=== PATIENT | female | born 1960 | race African-American/Black ===

== ENCOUNTER → 2017-07-22 | Outpatient (CLI) | payer BC ==
--- NOTE | 2017-07-22 16:06 | RAD ---
DATE: 07/22/2017. EXAM: DIGITAL SCREEN BILAT W/CAD. HISTORY: Routine mammographic screening. COMPARISON: 07/22/2016. This study was interpreted with the benefit of Computerized Aided Detection (CAD). FINDINGS: The breast parenchyma is dense, which could reduce sensitivity of mammography. Breast parenchyma level density D.. There are no suspicious masses, microcalcifications or architectural distortion. The parenchymal pattern is stable. BI-RADS CATEGORY: 1 NEGATIVE. RECOMMENDED FOLLOW-UP: 12M 12 MONTH FOLLOW-UP. PQRS compliance statement: Patient information was entered into a reminder system with a target due date 07/22/2018 for the next mammogram. Mammography is a sensitive method for finding small breast cancers, but it does not detect them all and is not a substitute for careful clinical examination. A negative mammogram does not negate a clinically suspicious finding and should not result in delay in biopsying a clinically suspicious abnormality. "Our facility is accredited by the [employer] Mammography [employer]."
== END | disposition home or self-care (01) ==
LOC: MAMMO 11:10
PROVIDERS: ATTEND Obstetrics & Gynecology
DX: Z12.31 Encounter for screening mammogram for malignant neoplasm of breast (principal)
CPT/HCPCS: G0202; 77067

== ENCOUNTER → 2018-07-28 | Outpatient (CLI) | payer BC ==
--- NOTE | 2018-07-31 09:40 | RAD ---
DATE: 07/28/2018 EXAM: MAMMO MORIS SCREENING BILATERAL HISTORY: Routine screening COMPARISON: 07/22/2017 This study was interpreted with the benefit of Computerized Aided Detection (CAD). Breast Density: HETERO The breast parenchyma is heterogenously dense, which could reduce sensitivity of mammography. Breast parenchyma level C. FINDINGS: 2-D and 3-D tomosynthesis imaging was performed in CC and MLO projections. The patient positioning is suboptimal. No new or enlarging breast densities are seen. No suspicious microcalcifications are evident. IMPRESSION: There is no mammographic evidence of malignancy in either breast. BI-RADS CATEGORY: 1 NEGATIVE RECOMMENDED FOLLOW-UP: 12M 12 MONTH FOLLOW-UP PQRS compliance statement: Patient information was entered into a reminder system with a target due date for the next mammogram. Mammography is a sensitive method for finding small breast cancers, but it does not detect them all and is not a substitute for careful clinical examination. A negative mammogram does not negate a clinically suspicious finding and should not result in delay in biopsying a clinically suspicious abnormality. "Our facility is accredited by the [employer]ammography [employer]."
== END | disposition home or self-care (01) ==
LOC: MAMMO 14:10
PROVIDERS: ATTEND Obstetrics & Gynecology
DX: Z12.31 Encounter for screening mammogram for malignant neoplasm of breast (principal)
CPT/HCPCS: 77063; 77067

== ENCOUNTER → 2019-08-03 | Outpatient (CLI) | payer BC ==
--- NOTE | 2019-08-03 16:35 | KCIC ---
Bilateral digital screening mammograms with 3-D tomosynthesis: Reason for examination: Routine screening. Comparison is made to previous studies dated 07/28/2018 and 07/22/2017. Bilateral mammograms in CC and oblique projections were obtained with 2-D imaging and 3-D tomosynthesis imaging on a Siemens Inspiration unit and reviewed on the workstation. Interpretation was made with the benefit of CAD. The skin and nipples show no abnormalities. No abnormal axillary lymph nodes are seen. The breast parenchyma is heterogeneously dense. (Breast density: Category C.) There appears to be new clustered calcifications present in the 5:00 B position of the right breast. Recommend further evaluation with coned magnification views. There is a new nodular density seen posterior centrally in the 6:00 B position of the right breast. Recommend further evaluation with ultrasound. There is also suggestion of some nodularity in the left breast on tomographic oblique view image #27 of 47. Recommend further evaluation with ultrasound . There are no other dominant masses, suspicious calcifications or architectural distortion. Impression: New clustered calcifications at the 5:00 B position of the right breast. Recommend coned mastication views for further evaluation. New nodule centrally in the 6:00 B position of the right breast. Recommend further evaluation with ultrasound. Nodular density inferiorly in the left breast on tomographic oblique view #27. Recommend further evaluation with ultrasound. Your patient's mammogram demonstrates that she has dense breast tissue (breast density category C or D), which could hide abnormalities, and if she has other risk factors for breast cancer that have been identified, she might benefit from supplemental screening tests that may be suggested by you as her ordering physician. Dense breast tissue, in and of itself, is a relatively common condition. Therefore, this information is not provided to cause undue concern, but rather to raise your awareness and to promote discussion with your patient regarding the presence of other risk factors, in addition to dense breast tissue. Your patient's mammography results will be sent to her. BI-RAD Category 0: Incomplete. Needs additional imaging evaluation. "Our facility is accredited by the [employer] Mammography [employer]." This patient's information has been entered into a reminder system for the patient to be notified with the results of her examination and a target date for the next mammogram. Electronically signed by: Beatrice Ness MD (08/03/2019 4:32 PM) [id number]
== END | disposition home or self-care (01) ==
LOC: KCIC MAMMO 13:16
PROVIDERS: ATTEND Obstetrics & Gynecology
DX: Z12.31 Encounter for screening mammogram for malignant neoplasm of breast (principal); N63.13 Unspecified lump in the right breast, lower outer quadrant
CPT/HCPCS: 77063; 77067

== ENCOUNTER → 2019-08-21 | Outpatient (CLI) | payer BC ==
--- NOTE | 2019-08-21 13:46 | KCIC ---
Right breast diagnostic digital mammogram: Reason for examination: Right breast calcifications. Comparison is made to previous study dated 08/03/2019. Clustered pleomorphic calcifications are present in the anterior 5:00 position of the right breast. Stereotactic biopsy is recommended. IMPRESSION: Clustered calcifications at the 5:00 position anteriorly in the right breast. Recommend further evaluation with stereotactic biopsy. Bilateral breast ultrasound: Bilateral whole breast ultrasound including evaluation of all 4 quadrants and the retroareolar and axillary regions of both breasts was performed. In the right breast at the 6:00 position 4 cm from the nipple, there is a somewhat lobulated appearing nodule measuring 3.3 mm in greatest dimension. Ultrasound-guided biopsy is recommended. In the retroareolar 8:00 position, there is a heterogeneous 1.5 x 1 cm mass lesion with septation. This may represent a fibroadenoma but recommend further evaluation with ultrasound-guided biopsy. No abnormal appearing lymph nodes are seen in the right axilla. In the left breast, there are some minimal fibrocystic type changes seen at the 6:00 position measuring 3 mm in size. No other cystic or solid lesions are seen. No abnormal appearing lymph nodes are seen in the left axilla. IMPRESSION: 3.3 mm lobulated lesion at the 6:00 position 4 cm from the nipple in the right breast. 1.5 cm nodule at the 8:00 retroareolar position in the right breast. Recommend further evaluation with ultrasound guided biopsies. Fibrocystic changes in the left breast. Recommend 6 month follow-up ultrasound of the left breast. BI-RADS Category 4: Suspicious. These findings were discussed with the patient and the patient's physician, Dr. Quiroz, was notified about these findings on 08/21/2019 at 1342. "Our facility is accredited by the [employer] Mammography Program." This patient's information has been entered into a reminder system for the patient to be notified with the results of her examination and a target date for the next mammogram. Electronically signed by: Beatrice Ness MD (08/21/2019 1:43 PM) [facility]
== END | disposition home or self-care (01) ==
LOC: KCIC MAMMO 09:03
PROVIDERS: ATTEND Obstetrics & Gynecology
DX: N64.89 Other specified disorders of breast (principal); N63.13 Unspecified lump in the right breast, lower outer quadrant
CPT/HCPCS: 76641; 77065

== ENCOUNTER → 2019-09-27 | Outpatient (CLI) | payer BC ==
[~2019-09-27] MED LIST: LIDOCAINE 2%/EPI 1:100,000 20 ML VIAL. IJ ONE
--- NOTE | 2019-09-27 17:18 | RAD ---
Examination: 1. Ultrasound-guided right breast biopsy x 2. 2. Right breast stereotactic biopsy. 3. Right breast specimen radiograph. 4. Right breast postbiopsy mammogram. INDICATION: 58-year-old woman recalled from screening for developing calcifications in the 5:00 position lower inner right breast, found on follow-up diagnostic breast ultrasound to have additional nodules in the right breast at the 6:00 position 4 cm from the nipple and at the 8:00 subareolar region , all of which were recommended for biopsy. COMPARISON: Bilateral screening mammograms of July 28, 2018, August 03, 2019, right diagnostic mammogram of August 21, 2019 and right diagnostic breast ultrasound of August 21, 2019. TECHNIQUE AND FINDINGS: Informed consent was obtained and an appropriate procedure was observed. For the ultrasound-guided biopsies, patient was placed supine in the ultrasound imaging suite and the 2 lesions at the 6:00 position 4 cm from the nipple and at the 8:00 subareolar region were identified and marked on the skin surface for periprocedural planning. Thereafter, using standard sterile technique, ultrasound guidance, local anesthesia and separate sterile equipment through the same lateral puncture site, the 6:00 position lesion was sampled with two 14-gauge spring-loaded passes, samples placed in formalin, and an S shaped biopsy marker was deployed at this biopsy site. Hemostasis was ensured with direct breast compression for 10 minutes. Attention was next turned to the second biopsy site at the 8:00 subareolar position which was sampled with a separate biopsy needle guide and 14-gauge biopsy device, collecting 1 satisfactory sales representative advertising sample of the lesion after which an open padlock shaped biopsy device was deployed at the lesion. Hemostasis was also ensured with direct breast compression of 10 minutes. Since the 5:00 and 6:00 position biopsy sites appeared close to one another and the 6:00 biopsy target felt gritty on contact with the biopsy needle, I checked the location of the biopsy marker at the 6:00 position with an initial postbiopsy mammogram to confirm that the 5:00 calcifications recommended for biopsy were indeed distinct from the 6:00 nodule also recommended for biopsy. This initial postbiopsy mammogram showed satisfactory deployment of the open padlock biopsy marker and the S-shaped biopsy marker. It also helped confirm that the 6:00 nodule seen on ultrasound (which, although mammographically occult, is now marked by the S-shaped biopsy marker) was distinct from the 5:00 calcifications seen on mammography, both of which were separately recommended for biopsy. I therefore decided to pursue stereotactic biopsy of the calcifications at the right 5:00 position, initially selecting a craniocaudal approach. However, the preprocedural images and technical settings for successful biopsy performance from this approach were unsatisfactory so I switched to a mediolateral approach and obtained 12 vacuum-assisted 10-gauge biopsy needle samples of the targeted calcifications using standard sterile technique, stereotactic imaging guidance and local anesthesia with 1 percent lidocaine for superficial anesthesia and lidocaine with epinephrine for local anesthesia deeper in the breast tissue. A specimen radiograph confirmed satisfactory sampling of the targeted calcifications so I deployed a marker at this biopsy site. It was a T-shaped biopsy marker from a 10 cm long marker deploying needle. However, the initial stereotactic images following marker deployment did not satisfactorily demonstrate marker placement in the breast so I chose a 13 cm long biopsy marker needle for repeat deployment of a (now sonali shaped) marker along the biopsy tract. The paired stereotactic images from this deployment were satisfactory so the guide and marker deploying needle were removed and hemostasis assured with direct breast compression for 10 minutes. The final postbiopsy mammogram showed deployment of the sonali shaped biopsy marker in the area of previous microcalcifications with only a few minimal residual calcifications still visible. The initial T-shaped stereotactic biopsy marker is located more medially and superficially along the biopsy tract. The biopsy markers from the earlier same day ultrasound-guided biopsy are unchanged in satisfactory position. No postbiopsy hematoma is apparent. Patient tolerated all 3 procedures with minimal discomfort. There were no apparent complications. Postprocedure instructions were reviewed and patient was discharged in stable condition to follow up with her referring provider. IMPRESSION: Successful ultrasound-guided core needle biopsy of 2 right breast lesions (at the 6:00 position 4 cm from the nipple and at the subareolar right 8:00 position) and stereotactic core needle biopsy of a cluster of calcifications in the lower inner right breast (previously reported to be at the 5:00 position). Pathology results from all 3 biopsy sites are pending. An addendum will be issued once pathology results become available. Electronically signed by: Madeleine Stark MD (09/27/2019 5:15 PM) [facility]
--- NOTE | 2019-10-01 16:06 | PATHOLOGY ---
[facility] Accession Number: [id number] . 01 Material submitted: . PART A: breast - RIGHT BREAST MASS, 6:00, 4CMFN. Modifiers: right, 6:00 PART B: breast - RIGHT BREAST MASS, RETROAREOLAR, 8:00. Modifiers: right, 8:00 PART C: breast - RIGHT BREAST CALCIFICATIONS, 5:00, ANTERIOR POSITION. Modifiers: right, 5:00, anterior . 01 Clinical history: . A. Right breast mass 6:00 4 cm FN 0.33 cm B. Right breast mass retroareolar 8:00 1.5 cm C. Right breast calcifications anterior 5 o'clock position . 02 Diagnosis: A. Breast tissue, right breast mass 6:00 needle biopsies: - Invasive ductal carcinoma, histologic Grade I-II. 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 - Calcifications identified. . B. Breast tissue, right breast retroareolar mass 8:00 position, needle biopsies: - Fibroadenoma. - Fibrocystic changes with focal apocrine metaplasia. . C. 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 - Fibrocystic changes. - Calcifications identified. . (JPM:[facility]; 09/28/2019) [facility] 10/01/2019 1516 Local . 02 Comment: Sections of the right breast mass at 6:00 needle biopsy reveal an invasive mammary carcinoma. The tumor shows moderate tubule formation. Tumor cells are also present in small nests and cords which infiltrate a reactive desmoplastic stroma. The tumor shows moderate nuclear pleomorphism. Occasional mitotic figures are demonstrated. There is no lymphovascular tumor invasion. The morphologic findings are supportive of the diagnosis of an invasive ductal carcinoma, histologic Grade I-II. Invasive ductal carcinoma measures up to 0.6 cm in greatest dimension on the glass slide. There is associated low to intermediate grade ductal carcinoma in situ of cribriform type. There are calcifications present within invasive carcinoma and DCIS. Breast prognostic studies will be obtained on A2, the results of which will be reported separately. . Sections of the right breast retroareolar mass at 8:00 reveal a fibroadenoma. There is no evidence of malignancy. . Sections of the right breast calcifications anterior 5:00 position needle biopsies reveal multiple segments of breast tissue. There are multiple foci of low to intermediate grade ductal carcinoma in situ of cribriform type. The largest of these foci measure up to 0.4-0.5 cm in greatest dimension on the glass slide. DCIS shows focal necrosis. There are focal prominent calcifications associated with DCIS. There are occasional calcifications seen within background fibrocystic changes. Breast prognostic studies for DCIS will be obtained, the results of which will be reported separately. . The case is co-reviewed by Dr. Price, who concurs with the diagnoses. (JPM:mml; 09/28/2019) . 02 Electronically signed: . Tavares Mcmanus MD, Pathologist NPI- [id number] . 01 Gross description: . A. The specimen is received in formalin, labeled "Dinora Ochoa, right breast 6:00" and consists of 2 needle cores of pink-fernando tissue measuring 0.8 cm and 0.9 cm in length and 0.2 cm each in diameter which are entirely submitted in A1-A2. The specimen was obtained at 8:54 AM on 09/27/2019 and placed in formalin at 8:57 AM. The cold ischemic time is 3 minutes and the total formalin fixation time is greater than 6 hours but less than 72 hours. . B. The specimen is received in formalin, labeled "Dinora Ochoa, right breast 8:00" and consists of a needle core of pink-fernando tissue measuring 1.4 cm in length and 0.2 cm in diameter which is entirely submitted in B1. The specimen was collected at 9:04 AM on 09/27/2019 and placed in formalin at 9:06 AM. The cold ischemic time is 2 minutes and the total formalin fixation time is greater than 6 hours less than 72 hours. . C. The specimen is received in formalin, labeled "Dinora Ochoa, right breast tissue" and consists of an orange cassette containing multiple needle cores of yellow fibroadipose tissue measuring 2.5 x 2.0 x 0.5 cm in aggregate which are transferred to cassette C1. The specimen was obtained at 10:49 AM on 09/27/2019 and placed in formalin at 11:03 AM. The cold ischemic time is 14 minutes and the total formalin Station time is greater than 6 hours less than 72 hours. (SDY; 09/27/2019) SYU/SYU 09/27/2019 1501 Local . 02 Pathologist provided ICD-10: C50.911, D05.11, D24.1, N60.11, N60.81 . 02 CPT . 332533, [id number], [id number] Specimen Comment: A courtesy copy of this report has been sent to [phone], [phone] Specimen Comment: [id number], Specimen Comment: Report sent to ,DR CHRISTOPHER / DR ROSALES Performed at: 01 [facility] [address], [place] [id number] MD Pavan Saini MD Phone: [phone] Performed at: 02 [facility] [place] [address] [place], [place] [id number] MD Tavares Mcmanus MD Phone: [phone]
== END | disposition home or self-care (01) ==
LOC: MAMMO 07:37
PROVIDERS: ATTEND Obstetrics & Gynecology
DX: R92.0 Mammographic microcalcification found on diagnostic imaging of breast (principal); D05.11 Intraductal carcinoma in situ of right breast; D24.1 Benign neoplasm of right breast
CPT/HCPCS: 19081; 19083; 19084; 77022; 77065; 88305; 88361; C1713; J3490; 19085; 76942